=== PATIENT | female | born 1990 | race Caucasian/White ===

== ENCOUNTER 2018-02-24 01:39 | Emergency (ER) | payer OTHER, SELFPAY ==
[2018-02-24 01:40] VITALS: BP 182/71; PULSE 83; RESP 18; TEMP 36.1; O2SAT 98; BMI 42.1
--- NOTE | 2018-02-24 02:07 | ED.VISSUMM ---
- ER Visit Summary Date of Service: 02/24/18 Chief Complaint: Right upper quadrant abdominal pain History of Present Illness: The patient is a 27 F right upper quadrant abdominal pain recurrent from 10 PM last night. 7 PM ate steak and potatoes and green beans with butter. There is no sour cream. Symptoms 4 days ago hour and half after eating bologna sandwich with cheese. Symptoms subsided that time. A year ago had epigastric discomfort evaluated by PCP up in [place]. Nausea vomiting ?2 no hematemesis. No NSAID use. No melena. Currently denies any nausea symptoms are pain symptoms. Patient is on control. Here with significant other. Physical Examination: General: Alert and oriented ?3, no acute distress HEENT: Normocephalic, atraumatic. Moist mucosa membranes Neck: supple, nontender. Cardiovascular: Regular rate and rhythm, no murmurs Respiratory: Normal breath sounds, symmetric, no distress Abdomen: Soft, mild right upper quadrant tenderness without guarding or rebound, nondistended. Normal bowel sounds. Negative McBurney's. Extremities: Nontender, no edema, pulses intact ?4 Neuro: no focal neurological deficits. Test Results: White count 11.7. Lipase liver enzymes normal. Emergency Department Course and Treatment: Patient nonsurgical abdomen. Vital signs stable. History concerns for possible early biliary colic. Labs were stable. Reevaluation remained stable abdominal reexam was soft nontender. Discussed biliary colic and avoiding dairy and fatty foods. She is given follow-up as an outpatient. Signs and symptoms discussed to return. All questions were answered. Treatment Plan: [] Disposition: Discharge Impression: 1. Right upper quadrant abdominal pain 2. Biliary colic This note was generated with [employer] dictation software. It may contain incorrect words, spelling, and punctuation that were not noted in review of the chart prior to signing ED Disposition - Plan for ED Patient: Disposition: Home or Assisted Living Chief Complaint: Abd Pain Diagnosis: Right upper quadrant abdominal pain, Biliary colic Instructions: ED Abdominal Pain Gallstone Poss Prescriptions: Ondansetron [Zofran Odt] 8 mg PO Q8H PRN PRN #10 tab PRN Reason: Nausea Referrals: Care Physician,No Primary [Primary Care Provider] - Lloyd Denny DO [STAFF PHYSICIAN] - 5-7 Days
[2018-02-24 02:36] LABS: AST(SGOT) 32 U/L (15-37); Alanine Aminotransfer ALT/SGPT 53 U/L (13-56); Albumin, Serum 3.2 g/dL (3.2-5.0); Alkaline Phosphatase 32 U/L (45-117); Anion Gap 9 (5-15); BUN 9 mg/dL (7-18); BUN/Creat Ratio 9.8 RATIO (10-20); Chloride 105 mmol/L (98-107); Creatinine, Serum 0.92 mg/dL (0.55-1.02); EST Glomerular Filtration Rate 78 mL/min (>60); Est Glom Filt Rate - Afr Amer 94 mL/min (>60); Estimated Creatinine Clearance 75.98 ml/min; Globulin 4.4 g/dL (2.2-4.2); Glucose 96 mg/dL (74-106); Lipase 113 U/L (73-393); Potassium 4.2 mmol/L (3.5-5.1); Protein, Total 7.6 g/dL (6.4-8.2); Sodium Level 139 mmol/L (136-145)
[2018-02-24 02:37] LABS: Absolute Lymphocyte Count 2.41 X10^3/ul (0.83-4.51); Basophil# 0.04 X10^3/uL; Basophil% 0.3 % (0-1); Eosinophil# 0.39 X10^3/uL; Eosinophils% 3.3 % (0-5); Hematocrit 36.1 % (37-47); Hemoglobin 11.8 g/dl (12.0-15.0); Lymphocyte # 2.41 X10^3/ul (4.0); Lymphocyte % 20.6 % (19-41); Mean Corp Hgb Conc 32.7 g/gl (32-36); Mean Corpuscular Hgb 29.6 pg (27.0-32.0); Mean Corpuscular Volume 90.5 fL (81-99); Mean Platelet Vol. 10.6 fl (6.2-12.0); Monocyte# 0.82 X10^3/uL; Neutrophil % 68.6 % (47-70); Platelet Count 337 K/mm3 (150-450); RBC Distribution Width CV 13.4 % (11.6-14.6); RBC Distribution Width SD 44.2 fl (35.1-43.9); Red Blood Count 3.99 M/mm3 (4.2-5.4); White Blood Count 11.7 K/mm3 (4.4-11.0)
[2018-02-24 02:38] LABS: Differential Indicated SCAN CRITERIA MET; POSITIVE COUNT NO; POSITIVE DIFFERENTIAL NO; POSITIVE MORPHOLOGY YES
[2018-02-24 03:53] VITALS: RESP 18; O2SAT 98
== END 2018-02-24 03:54 | disposition home or self-care (01) ==
PROVIDERS: Emergency Provider Emergency Medicine
DX: K80.50 Calculus of bile duct without cholangitis or cholecystitis without obstruction (principal); R10.11 Right upper quadrant pain; Z72.0 Tobacco use
CPT/HCPCS: 80048; 80076; 83690; 85025; 99284; A4216